=== PATIENT | female | born 1955 | race Caucasian/White ===

== ENCOUNTER 2018-01-02 07:20 | Emergency (ER) | payer MEDICAID, OTHER ==
[~2018-01-02] VITALS: Ht 170.2 cm; Wt 63.5 kg
[2018-01-02 07:20] VITALS: BP 127/69
[2018-01-02] MEDS ORDERED: LORazepam 2MG/ML-1ML VIAL IM ONE (08:30)
== END 2018-01-02 09:12 | disposition home or self-care (01) ==
LOC: ER 07:20 → EDBD 07:20 → ER 09:12
DX: F41.9 Anxiety disorder, unspecified (principal); I10 Essential (primary) hypertension; E07.9 Disorder of thyroid, unspecified; Z98.51 Tubal ligation status; Z90.49 Acquired absence of other specified parts of digestive tract
CPT/HCPCS: 93005; 96372; 99284; J2060